=== PATIENT | female | born 1985 | race Two or more races ===

== ENCOUNTER 2017-02-17 02:43 | Inpatient (IN) | payer MEDICAID ==
[~2017-02-17 02:43] MED LIST: CELEXA40 MG PO; COLACE100 MG PO; LAN-O-SOOTHE7 GM TOP; MOTRIN800 MG PO; NORCO 325-5 MG1 TAB PO; PRENATAL VITAM1 EAC5 PO; SUDAFED 12 HOU120 MG PO
== END 2017-02-19 14:05 | disposition short-term general hospital (02) | DRG 775 ==
LOC: LDROP 02:43 → LDRIP 02:43 → EDSTATUS 03:31 → LDRIP 02-19 14:05
PROVIDERS: ADMIT Family Medicine
PROC: 10907ZC Drainage of Amniotic Fluid, Therapeutic from Products of Conception, Via Natural or Artificial Opening (ICD-10-PCS; principal; 2017-02-17)
PROC: 10E0XZZ Delivery of Products of Conception, External Approach (ICD-10-PCS; principal; 2017-02-17)
DX: O80 Encounter for full-term uncomplicated delivery (principal); Z3A.39 39 weeks gestation of pregnancy; Z37.0 Single live birth
CPT/HCPCS: A9150; J2590